=== PATIENT | female | born 2000 | race Caucasian/White ===

== ENCOUNTER 2022-02-13 12:02 | Emergency (ER) | payer OTHER, SELFPAY ==
[2022-02-13 12:08] VITALS: BP 129/67; PULSE 105; RESP 20; TEMP 36.6; O2SAT 100; BMI 20.8
[2022-02-13 12:40] LABS: Add Manual Diff / Slide Review NO; Basophils Absolute Auto 0 /uL (0-100); Basophils Percent Auto 0.5 % (0-2); Eosinophils Absolute Auto 0 /uL (0-450); Eosinophils Percent Auto 0.4 % (2-4); Hemoglobin 13.6 g/dL (12.0-16.0); Lymphocytes Absolute Auto 1400 /uL (1100-4500); Lymphocytes Percent Auto 22.8 % (25-40); Mean Corpuscular HGB Conc 33.8 % (30-36); Mean Corpuscular Hemoglobin 29.7 PG (26-34); Mean Corpuscular Volume 87.7 fL (80-100); Monocytes Absolute Auto 800 /uL (0-900); Monocytes Percent Auto 12.8 % (3-14); Neutrophils Absolute Auto 4000 /uL (1500-7000); Neutrophils Percent Auto 63.5 % (50-75); Platelet Count 265 X10^3/uL (150-400); Red Blood Cell Count 4.57 X10^6/uL (4.0-5.2); Red Cell Distribution Width 12.7 % (11.6-14.8); White Blood Cell Count 6.3 X10^3/uL (4.5-11.0)
[2022-02-13 13:03] LABS: Alanine Aminotransferase 16 IU/L (<35); Albumin 4.7 g/dL (3.5-5.0); Albumin Globulin Ratio 1.4 (1.0-2.8); Alkaline Phosphatase 49 U/L (38-126); Aspartate Aminotransferase 27 IU/L (14-36); BUN Creatinine Ratio 8.8 (6-22); Bilirubin Total 0.2 mg/dL (0.2-1.3); Blood Urea Nitrogen 5 mg/dL (7-17); Calcium 9.2 mg/dL (8.4-10.2); Carbon Dioxide 27 mmol/L (22-32); Chloride 102 mmol/L (98-107); Creatine Kinase 40 U/L (30-135); Estimated Glomerular Filt Rate > 60 mL/min (>60); Globulin 3.4 g/dL (1.7-4.1); Glucose 102 mg/dL (70-100); HEMOLYSIS < 15 (0-50); Lipase 57 U/L (23-300); Magnesium 2.1 mg/dL (1.6-2.3); Potassium 3.9 mmol/L (3.4-5.1); Sodium 137 mmol/L (137-145); Total Protein 8.1 g/dL (6.3-8.2)
[2022-02-13 13:13] LABS: Bacteria Urine Many (>30); Culture Indicated Urine Specimen Cultured; RBC Urine 0-1/HPF (0-5/HPF); Squamous Epithelial Cell Urine 5-10 /HPF (0-5/HPF); WBC Urine 5-10/HPF (0-5/HPF)
[2022-02-13 13:15] LABS: Troponin I < 0.012 ng/mL (0.01-0.034)
[2022-02-13 13:52] LABS: HCG Quantitative /Beta subunit 55033 mIU/mL
--- NOTE | 2022-02-13 14:18 | ED_ITS ---
HPI - Chest Pain General Chief Complaint: Chest Pain Stated Complaint: Abnormal High HR and Chest Pains/Preg Time Seen by Provider: 02/13/22 14:16 Source: patient Mode of arrival: Ambulatory History of Present Illness HPI narrative: Patient is a 21-year-old healthy female presenting today with heart palpitations. She said that she recently found out she was couple of days ago. She has felt her heart racing and her Apple watch toward her was 5 x 1 tab. She denies any dizziness or lightheadedness. Denies any nausea or vomiting. She is having some minimal abdominal cramping with out vaginal bleeding or vomiting. She denies any painful or frequent urinations. She is feeling a bit better. She states that she has a sodium deficiency and drinks Pedialyte and Gatorade regularly. She does not feel like he is dehydrated. Related Data Previous Rx's Medication Instructions Recorded nitrofurantoin 100 mg PO Q12H 7 Days #14 cap 02/13/22 monohydrate/macrocrystals 100 mg capsule (Macrobid) Allergies Allergy/AdvReac Type Severity Reaction Status Date / Time No Known Drug Allergies Allergy Verified 02/13/22 12:08 Review of Systems Review of Systems Narrative: GENERAL: Denies chills, fatigue, malaise, fever, sweats, travel HEENT: Denies sinus pain, ear pain, sore throat, difficulty swallowing, neck pain RESPIRATORY: Denies dyspnea, cough, wheezing, hemoptysis, sputum. CARDIOVASCULAR: See HPI GASTROINTESTINAL: Denies nausea, vomiting, abdominal pain, diarrhea, constipation, melena. : Denies dysuria, frequency, incontinence, hematuria, urinary retention, flank pain. MUSCULOSKELETAL: Denies weakness, joint pain, or bony pain SKIN: No rash, no erythema, no pruritus NEUROLOGIC: Denies weakness, dizziness, headache, numbness, change in speech, confusion PSYCHIATRIC: No concerning psychosocial issues. 12 point review of systems is negative except for those stated above and HPI Patient History Social History Smoking Status: Never smoker Smoking Status: Never smoker Substance Use Type: does not use Exam Initial Vital Signs Initial Vital Signs: Vital Signs Temperature 97.8 F 02/13/22 12:08 Pulse Rate 105 H 02/13/22 12:08 Respiratory Rate 20 02/13/22 12:08 Blood Pressure 129/67 02/13/22 12:08 Pulse Oximetry 100 02/13/22 12:08 GENERAL: Alert healthy well-appearing 21-year-old female HEENT: Head atraumatic,EOMI, pupils reactive, face symmetric, moist mucous membranes CARDIOVASCULAR: Regular rate and rhythm without murmurs, rubs or gallops. RESPIRATORY: Breath sounds equal bilaterally, no wheezes rales or rhonchi. ABDOMEN: Soft, minimal lower abdominal his pain no guarding no rebound : No CVA tenderness EXTREMITIES: Normal range of motion, no clubbing or edema. Neurovascularly intact NEUROLOGICAL: Alert and oriented x4.Normal gait and speech SKIN: Warm, dry, no laceration, no petechiae, no rashes or lesions. Course Orders Ordered: ED Orders 02/13/22 12:15 Urine Culture Stat Urine Microscopic Stat 02/13/22 12:28 Beta HCG, Quant [HCG Quantitative /Beta subunit] Stat Complete Blood Count AUTO DIFF Stat Comprehensive Metabolic Panel Stat Lipase Stat Magnesium Stat Troponin & CK Cardiac Panel Stat 02/13/22 14:32 US OB <= 14 weeks fetus Stat Discontinued Medications Sodium Chloride (Normal Saline 0.9%) 1,000 mls @ 1,000 mls/hr IV BOLUS ONE Stop: 02/13/22 15:25 Last Infusion: 02/13/22 16:08 Dose: 0 mls/hr Documented by: Admin: 02/13/22 14:55 Dose: 1,000 mls/hr Documented by: RAFA Vital Signs Vital signs: Vital Signs - 8 hr 02/13/22 12:08 02/13/22 14:54 02/13/22 14:55 Temperature 97.8 F Pulse Rate 105 H 89 91 H Respiratory Rate 20 24 18 Blood Pressure 129/67 107/59 L Pulse Oximetry 100 100 100 02/13/22 15:00 02/13/22 15:30 02/13/22 16:00 Temperature Pulse Rate 90 85 92 H Respiratory Rate 22 13 23 Blood Pressure 100/59 L 94/56 L 99/62 Pulse Oximetry 100 100 100 MDM - Chest Pain Lab Data Result diagrams: 02/13/22 12:28 02/13/22 12:28 Labs: Lab Results 02/13/22 02/13/22 02/13/22 Range/Units 12:15 12:28 12:28 WBC 6.3 (4.5-11.0) X10^3/uL RBC 4.57 (4.0-5.2) X10^6/uL Hgb 13.6 (12.0-16.0) g/dL Hct 40.0 (36-46) % MCV 87.7 (80-100) fL MCH 29.7 (26-34) PG MCHC 33.8 (30-36) % RDW 12.7 (11.6-14.8) % Plt Count 265 (150-400) X10^3/uL Neut % (Auto) 63.5 (50-75) % Lymph % (Auto) 22.8 L (25-40) % [place] % (Auto) 12.8 (3-14) % Eos % (Auto) 0.4 L (2-4) % Baso % (Auto) 0.5 (0-2) % Neut # (Auto) 4000 (1754-9757) /uL Lymph # (Auto) 1400 (4031-5863) /uL [place] # (Auto) 800 (0-900) /uL Eos # (Auto) 0 (0-450) /uL Baso # (Auto) 0 (0-100) /uL Sodium 137 (137-145) mmol/L Potassium 3.9 (3.4-5.1) mmol/L Chloride 102 (98-107) mmol/L Carbon Dioxide 27 (22-32) mmol/L BUN 5 L (7-17) mg/dL Creatinine 0.57 (0.52-1.04) mg/dL Estimated GFR > 60 (>60) mL/min BUN/Creatinine Ratio 8.8 (6-22) Glucose 102 H (70-100) mg/dL Calcium 9.2 (8.4-10.2) mg/dL Magnesium 2.1 (1.6-2.3) mg/dL Total Bilirubin 0.2 (0.2-1.3) mg/dL AST 27 (14-36) IU/L ALT 16 (<35) IU/L Alkaline Phosphatase 49 (38-126) U/L Total Creatine Kinase 40 (30-135) U/L CK-MB (CK-2) TNP CK-MB (CK-2) Rel Index TNP Troponin I < 0.012 (0.01-0.034) ng/mL Total Protein 8.1 (6.3-8.2) g/dL Albumin 4.7 (3.5-5.0) g/dL Globulin 3.4 (1.7-4.1) g/dL Albumin/Globulin Ratio 1.4 (1.0-2.8) Lipase 57 (23-300) U/L HCG, Quant 53674 mIU/mL Urine RBC 0-1/hpf (0-5/HPF) Urine WBC 5-10/hpf H (0-5/HPF) Ur Squamous Epith Cells 5-10 /hpf H (0-5/HPF) Urine Bacteria Many (>30) H (None) Ur Culture Indicated? Specimen cultured Point of Care Testing Test Results Positive Urine Dip Bedside Urine Glucose Negative Bedside Urine Bilirubin - Negative Bedside Urine Ketone - Negative Urine Specific [place] 1.015 Bedside Urine Occult Blood +/- Bedside Urine pH 6.0 Bedside Urine Protein - Negative Bedside Urine Urobilinogen - Negative Bedside Urine Nitrite - Negative Bedside Urine Leukocytes + 70 Esterase Imaging Data US - OB: Radiologist's Impression: atient: MeadowsFranci Kyaw Laws MR#: [id number] : 2000 Acct:[id number] Age/Sex: 21 / F Date of Service: 02/13/22 Loc: Accession Number: [id number] ?? Procedure: US OB <= 14 weeks fetus Ordering Provider: Kely Jarquin D.O. PROCEDURE:? US OB <= 14 WEEKS FETUS ? INDICATIONS:? newly prego with cramping ? OUTSIDE/PRIOR DATING DATA:? Last menstrual period (LMP):? November 14, 2021.? LMP-based estimated date of delivery (MARGOT):? August 11, 2022.? First dating scan (date):? February 13, 2022.? Estimated date of delivery (MARGOT) from first dating scan:? October 07, 2022. ? TECHNIQUE:? Real-time scanning was performed of the fetus and maternal pelvic organs, with image documentation.? Endovaginal scanning was also performed to better visualize the fetus and maternal ovaries.? ? COMPARISON:? None. ? FINDINGS:? ? Embryo:? 0.51 cm, compatible with a 6 week, 2 day gestation. Heart rate:? 119 beats per minute ? Maternal organs:? Ovaries demonstrated right corpus luteum. ? ? ? IMPRESSION:? Early single intrauterine gestation as detailed above. ? We strive to produce accurate, complete, and clear reports of imaging services. To assist us in improving patient care, this report was composed using standard report templates and voice recognition software. Therefore, it may contain abnormal punctuation, insertions and/or omissions. Occasional wrong-word or sound-alike substitutions may occur. Though we review the report and make efforts to correct it, we do recommend that the report be read carefully in proper context to recognize any text inaccuracies. ? Dictated by: Melvin Trinidad M.D. on 02/13/2022 at 15:38 ? ? Approved by: Melvin Trinidad M.D. on 02/13/2022 at 15:40 ? ECG Data Interpretation: Normal sinus rhythm rate 108 VT interval 134 QRS [address] changes no T- wave inversion no priors MDM Narrative Medical decision making narrative: The patient overall appears well. She is complaining of palpitations and fast heart rate however she reports heart rate of 110 at its fast this. In the ED it remains under 100, except for the EKG. She is given a L of fluids. Ultrasound confirms an IUP without complication. She is also found to have a UTI and started on antibiotics as well. At this time no need for any further workup Discharge Plan Departure Patient Disposition: Home Clinical Impression: UTI (urinary tract infection), Instructions: DI for Urinary Tract Infection (UTI), DI for -- Discomforts and Remedies Activity Restrictions/Additional Instructions: *You have been diagnosed with with UTI *What to do: Palpitations are likely from mild dehydration. Continue to drink fluids as you are. You do have a small bladder infection as well. Your 6 weeks and 2 days *Continue to take medications as directed Macrobid 100 mg twice a day for 7 days Continue *Follow up with your primary care provider in 2-3 days or call [phone] *Return to ER if you should have vaginal bleeding, abdominal pain or any new, worsening or concerning symptoms Prescriptions: New nitrofurantoin monohyd/m-cryst [Macrobid] 100 mg capsule 100 mg PO Q12H 7 Days Qty: 14 0RF Rx Instructions: must administer with a meal/food Referrals: Nettie Florentino MD [Primary Care Provider] -
--- NOTE | 2022-02-13 14:32 | DI.US.S_ITS ---
PROCEDURE: US OB <= 14 WEEKS FETUS INDICATIONS: newly prego with cramping OUTSIDE/PRIOR DATING DATA: Last menstrual period (LMP): November 14, 2021. LMP-based estimated date of delivery (MARGOT): August 11, 2022. First dating scan (date): February 13, 2022. Estimated date of delivery (MARGOT) from first dating scan: October 07, 2022. TECHNIQUE: Real-time scanning was performed of the fetus and maternal pelvic organs, with image documentation. Endovaginal scanning was also performed to better visualize the fetus and maternal ovaries. COMPARISON: None. FINDINGS: Embryo: 0.51 cm, compatible with a 6 week, 2 day gestation. Heart rate: 119 beats per minute Maternal organs: Ovaries demonstrated right corpus luteum. IMPRESSION: Early single intrauterine gestation as detailed above. We strive to produce accurate, complete, and clear reports of imaging services. To assist us in improving patient care, this report was composed using standard report templates and voice recognition software. Therefore, it may contain abnormal punctuation, insertions and/or omissions. Occasional wrong-word or sound-alike substitutions may occur. Though we review the report and make efforts to correct it, we do recommend that the report be read carefully in proper context to recognize any text inaccuracies. Dictated by: Melvin Trinidad M.D. on 02/13/2022 at 15:38 Approved by: Melvin Trinidad M.D. on 02/13/2022 at 15:40
[2022-02-13 14:54] VITALS: PULSE 89; RESP 24; O2SAT 100
[2022-02-13 14:55] VITALS: BP 107/59; PULSE 91; RESP 18; O2SAT 100
[2022-02-13] MEDS: SODIUM CHLORIDE 0.9% 1,000 ML 1000 ML IV (14:55)
[2022-02-13 15:00] VITALS: BP 100/59; PULSE 90; RESP 22; O2SAT 100
[2022-02-13 15:30] VITALS: BP 94/56; PULSE 85; RESP 13; O2SAT 100
[2022-02-13 16:00] VITALS: BP 99/62; PULSE 92; RESP 23; O2SAT 100
== END 2022-02-13 16:14 | disposition home or self-care (01) ==
PROVIDERS: Emergency Provider Emergency Medicine; PCP Family Medicine
DX: O23.41 Unspecified infection of urinary tract in pregnancy, first trimester (principal); N39.0 Urinary tract infection, site not specified; Z3A.01 Less than 8 weeks gestation of pregnancy
CPT/HCPCS: 36415; 76801; 76817; 80053; 81003; 81015; 81025; 82550; 83690; 83735; 84484; 84702; 85025; 87077; 87086; 87186; 93005; 93010; 96360; 99284

== ENCOUNTER 2022-02-27 15:36 | Emergency (ER) | payer OTHER, SELFPAY ==
[2022-02-27 15:40] VITALS: BP 116/69; PULSE 92; RESP 14; TEMP 36.6; O2SAT 98; BMI 20.1
[2022-02-27 16:30] LABS: Add Manual Diff / Slide Review NO; Basophils Absolute Auto 0 /uL (0-100); Basophils Percent Auto 0.3 % (0-2); Eosinophils Absolute Auto 100 /uL (0-450); Hematocrit 34.5 % (36-46); Hemoglobin 11.9 g/dL (12.0-16.0); Lymphocytes Absolute Auto 2100 /uL (1100-4500); Lymphocytes Percent Auto 20.8 % (25-40); Mean Corpuscular HGB Conc 34.5 % (30-36); Monocytes Absolute Auto 700 /uL (0-900); Monocytes Percent Auto 6.5 % (3-14); Neutrophils Absolute Auto 7300 /uL (1500-7000); Neutrophils Percent Auto 71.4 % (50-75); Platelet Count 263 X10^3/uL (150-400); Red Blood Cell Count 3.97 X10^6/uL (4.0-5.2); Red Cell Distribution Width 12.6 % (11.6-14.8); White Blood Cell Count 10.3 X10^3/uL (4.5-11.0)
[2022-02-27 16:33] LABS: Bacteria Urine Few (2-10); Culture Indicated Urine Specimen Cultured; Mucus Urine 1+ (Negative); RBC Urine 0-1/HPF (0-5/HPF); Squamous Epithelial Cell Urine 1-5 /HPF (0-5/HPF); Transitional Epi Cells Urine 1-5/HPF (0-5/HPF); WBC Urine 5-10/HPF (0-5/HPF)
--- NOTE | 2022-02-27 16:44 | ED_ITS ---
HPI - Syncope <MORRO Wayne - Last Filed: 02/27/22 17:48> General Chief Complaint: Syncope Stated Complaint: Has been passing out randomly, mild cramps Time Seen by Provider: 02/27/22 15:50 Source: patient Mode of arrival: Ambulatory Limitations: no limitations History of Present Illness HPI narrative: This is a 21-year-old female who is with her last menstrual period 13th, she is approximately 8 weeks and her due date is October 07, 2022. Patient states that she has a history of mental health disorders including PTSD, she is not on any medication currently. She was seen in the emergency department on 02/13/22 for syncope. Today she presents to the emergency department complaining of numerous syncopal episodes without aura or other complicating symptom. She denies any nausea vomiting she denies any trauma, denies any abnormal vaginal discharge, states that she was treated for you with Macrobid on 02/13/22 and her symptoms have improved. On chart review it appears that she grew out E coli, this was sensitive to the previous however patient endorses urinary frequency and urgency, states that her symptoms are ongoing. She denies any abnormal vaginal discharge or bleeding. Her primary care providers Dr. Florentino she states that she has follow-up scheduled on 06/13/2022 and has not arrange [facility] care yet. Patient states that she is currently bertram ng alone, her is deployed, and her roommate is out of the country for 30 days. Patient denies chills, dizziness, weakness, complaint this time. She states when her syncopal episode happens, everything goes black, she denies any aura, nausea, vision changes or other. Related Data Previous Rx's Medication Instructions Recorded cephalexin 500 mg capsule 500 mg PO TID 7 Days #21 cap 02/27/22 Allergies Allergy/AdvReac Type Severity Reaction Status Date / Time No Known Drug Allergies Allergy Verified 02/27/22 15:46 Review of Systems <MORRO Wayne - Last Filed: 02/27/22 17:48> Review of Systems Narrative: General: denies fever, chills, malaise, sweats, fatigue Head/Neck: denies headache, neck pain, dizziness or lightheadedness Eyes: denies visual changes, eye pain Cardio: denies chest pain, palpitations, edema Respiratory: denies dyspnea, cough, orthopnea GI: denies abdominal pain, nausea, vomiting, or diarrhea : Endorses ongoing dysuria and urinary frequency, denies any hematuria, urinary retention, abnormal vaginal discharge, vaginal bleeding, or incontinence MSK: denies joint pain, muscle weakness Skin: denies rash, itching, skin lesions or other Neuro: denies numbness, tingling Patient History <MORRO Wayne - Last Filed: 02/27/22 17:48> Social History Smoking Status: Never smoker Smoking Status: Never smoker alcohol intake frequency: holidays/special occasions only Substance Use Type: does not use Exam <MORRO Wayne - Last Filed: 02/27/22 17:48> Narrative Exam Narrative: Independently reviewed vitals signs and nursing notes. General: cooperative, comfortable, in no acute distress, well developed and well groomed Head: atraumatic, symmetrical facial expressions Neck: supple, atraumatic, without lymphadenopathy. Eyes: pupils equal round and reactive, EOMI, conjunctiva normal, no nystagmus Nose: nares patent, no rhinorrhea Mouth/Throat: uvula midline, moist mucus membranes Cardiovascular: regular rate and rhythm, no peripheral edema, warm extremities Respiratory: normal effort, able to speak in complete sentences, no audible whe ezing, stridor, or rales. No retractions or tachypnea. GI: abdomen soft, nontender to palpation, nondistended, no masses, no exquisite tenderness with exam, without guarding or rebound. MSK: moves all extremities, ambulatory w/steady gait, neurovascularly intact, no weakness Skin: brisk capillary refill, no rash, no erythema Neuro: normal speech and cognition, A&O x3, normal tone Psych: mental status is grossly normal, congruent mood, normal affect, pleasant and cooperative Initial Vital Signs Initial Vital Signs: Vital Signs Temperature 97.9 F 02/27/22 15:40 Pulse Rate 92 H 02/27/22 15:40 Respiratory Rate 14 02/27/22 15:40 Blood Pressure 116/69 02/27/22 15:40 Pulse Oximetry 98 02/27/22 15:40 <Seferino Palacios DO - Last Filed: 02/27/22 17:52> Initial Vital Signs Initial Vital Signs: Vital Signs Temperature 97.9 F 02/27/22 15:40 Pulse Rate 92 H 02/27/22 15:40 Respiratory Rate 14 02/27/22 15:40 Blood Pressure 116/69 02/27/22 15:40 Pulse Oximetry 98 02/27/22 15:40 Course <MORRO Wayne - Last Filed: 02/27/22 17:48> Orders Ordered: ED Orders 02/27/22 15:40 Urine Culture Stat Urine Microscopic Stat 02/27/22 15:51 EKG-12 Lead Stat 02/27/22 16:22 Basic Metabolic Panel Stat Complete Blood Count AUTO DIFF Stat Magnesium Stat Discontinued Medications Cephalexin HCl (Cephalexin 250 Mg Capsule) 500 mg PO NOW ONE Stop: 02/27/22 17:16 Last Admin: 02/27/22 17:28 Dose: 500 mg Documented by: ROBBIE Vital Signs Vital signs: Vital Signs - 8 hr 02/27/22 15:40 02/27/22 17:50 Temperature 97.9 F Pulse Rate 92 H 85 Respiratory Rate 14 12 Blood Pressure 116/69 116/69 Pulse Oximetry 98 100 <Seferino Palacios DO - Last Filed: 02/27/22 17:52> Orders Ordered: ED Orders 02/27/22 15:40 Urine Culture Stat Urine Microscopic Stat 02/27/22 15:51 EKG-12 Lead Stat 02/27/22 16:22 Basic Metabolic Panel Stat Complete Blood Count AUTO DIFF Stat Magnesium Stat Discontinued Medications Cephalexin HCl (Cephalexin 250 Mg Capsule) 500 mg PO NOW ONE Stop: 02/27/22 17:16 Last Admin: 02/27/22 17:28 Dose: 500 mg Documented by: [email or web address] Vital Signs Vital signs: Vital Signs - 8 hr 02/27/22 15:40 02/27/22 17:50 Temperature 97.9 F Pulse Rate 92 H 85 Respiratory Rate 14 12 Blood Pressure 116/69 116/69 Pulse Oximetry 98 100 MDM - Syncope <MORRO Wayne - Last Filed: 02/27/22 17:48> Lab Data Result diagrams: 02/27/22 16:22 02/27/22 16:22 Labs: Lab Results 0402/27/22 02/27/22 Range/Units 15:40 16:22 16:22 WBC 10.3 (4.5-11.0) X10^3/uL RBC 3.97 L (4.0-5.2) X10^6/uL Hgb 11.9 L (12.0-16.0) g/dL Hct 34.5 L (36-46) % MCV 87.0 (80-100) fL MCH 30.0 (26-34) PG MCHC 34.5 (30-36) % RDW 12.6 (11.6-14.8) % Plt Count 263 (150-400) X10^3/uL Neut % (Auto) 71.4 (50-75) % Lymph % (Auto) 20.8 L (25-40) % [place] % (Auto) 6.5 (3-14) % Eos % (Auto) 1.0 L (2-4) % Baso % (Auto) 0.3 (0-2) % Neut # (Auto) 7300 H (6049-4579) /uL Lymph # (Auto) 2100 (1409-5408) /uL [place] # (Auto) 700 (0-900) /uL Eos # (Auto) 100 (0-450) /uL Baso # (Auto) 0 (0-100) /uL Sodium 135 L (137-145) mmol/L Potassium 3.7 (3.4-5.1) mmol/L Chloride 102 (98-107) mmol/L Carbon Dioxide 25 (22-32) mmol/L BUN 10 (7-17) mg/dL Creatinine 0.53 (0.52-1.04) mg/dL Estimated GFR > 60 (>60) mL/min BUN/Creatinine Ratio 18.9 (6-22) Glucose 91 (70-100) mg/dL Calcium 8.7 (8.4-10.2) mg/dL Magnesium (1.6-2.3) mg/dL Urine RBC 0-1/hpf (0-5/HPF) Urine WBC 5-10/hpf H (0-5/HPF) Ur Squamous Epith Cells 1-5 /hpf (0-5/HPF) Ur Transition Epith Cell 1-5/hpf (0-5/HPF) Urine Bacteria Few (2-10) H (None) Urine Mucus 1+ H (Negative) Ur Culture Indicated? Specimen cultured 02/27/22 Range/Units 16:22 WBC (4.5-11.0) X10^3/uL RBC (4.0-5.2) X10^6/uL Hgb (12.0-16.0) g/dL Hct (36-46) % MCV (80-100) fL MCH (26-34) PG MCHC (30-36) % RDW (11.6-14.8) % Plt Count (150-400) X10^3/uL Neut % (Auto) (50-75) % Lymph % (Auto) (25-40) % [place] % (Auto) (3-14) % Eos % (Auto) (2-4) % Baso % (Auto) (0-2) % Neut # (Auto) (4773-3793) /uL Lymph # (Auto) (0220-5288) /uL [place] # (Auto) (0-900) /uL Eos # (Auto) (0-450) /uL Baso # (Auto) (0-100) /uL Sodium (137-145) mmol/L Potassium (3.4-5.1) mmol/L Chloride (98-107) mmol/L Carbon Dioxide (22-32) mmol/L BUN (7-17) mg/dL Creatinine (0.52-1.04) mg/dL Estimated GFR (>60) mL/min BUN/Creatinine Ratio (6-22) Glucose (70-100) mg/dL Calcium (8.4-10.2) mg/dL Magnesium 1.9 (1.6-2.3) mg/dL Urine RBC (0-5/HPF) Urine WBC (0-5/HPF) Ur Squamous Epith Cells (0-5/HPF) Ur Transition Epith Cell (0-5/HPF) Urine Bacteria (None) Urine Mucus (Negative) Ur Culture Indicated? Urine Dip Bedside Urine Glucose Negative Bedside Urine Bilirubin - Negative Bedside Urine Ketone - Negative Urine Specific [place] 1.020 Bedside Urine Occult Blood + Bedside Urine pH 6.0 Bedside Urine Protein - Negative Bedside Urine Urobilinogen - Negative Bedside Urine Nitrite - Negative Bedside Urine Leukocytes +/- 15 Esterase MDM Narrative Medical decision making narrative: This is a 21-year-old female, 8 weeks , who presents to the emergency department complaining syncopal episodes since 02/13/2022 when she was seen in the emergency department for this. She states that she was treated for a UTI, took Macrobid and completed the course but still has ongoing dysuria and urinary frequency. She denies any abnormal vaginal discharge, or vaginal bleeding. Her urine today is positive for leukocytes and bacteria on microscopy, this was sent for culture and is pending. Patient was treated with cephalexin for ongoing UTI, 500 mg p.o. t.i.d. for 7 days. She does not have any nausea, vomiting, flank pain or hematuria. Lab work overall is unremarkable, no gross electrolyte abnormalities, no leukocytosis, with a left shift, hemoglobin 11.9, hematocrit 34.5. Patient appears well hydrated, tolerating p.o. without difficulty. EKG shows sinus arrhythmia, ventricular rate 89 beats per minute, GA interval is 156 milliseconds, QRS is 78, QTC is 406, normal axis without any ST changes. No inverted waves. Patient's primary care provider is Dr. Florentino, patient is pending her appointment with her on March 13, 2020. I called the office to try and move her appointment, she does not have any availability to move her appointment sooner. I recommend a Holter monitor and sent a message to Dr. Florentino to see if she was able to order this for her. Also to see if anybody else can see the patient from the office sooner than March 13. Patient was given strict return precautions for any vaginal bleeding, worsening abdominal pain, cramping, chills, fever, syncope with injury, she was instructed to not drive her vehicle since she does not know when these syncopal episodes will occur. Possible that this is from her UTI, encourage patient to stay hydrated, frequently eat nutritious food, and follow- up closely with her primary care provider. Patient was given Dr. Jimenez information if she wants to call the office and schedule appointment with another provider. Encourage patient to return to the emergency department for any concerning symptoms, and to follow up accordingly. Patient is appropriate and amenable to discharge home. Vital signs are stable on repeat examination is unremarkable. Patient has been informed of results. Patient has been given strict return to ER precautions for any new or worsening symptoms. Patient understands to follow up closely with outpatient providers as instructed. Patient understands plan and agrees to discharge home. All questions and c oncerns answered at this time. <Seferino Philip DO - Last Filed: 02/27/22 17:52> Lab Data Labs: Lab Results 02/27/22 02/27/22 02/27/22 Range/Units 15:40 16:22 16:22 WBC 10.3 (4.5-11.0) X10^3/uL RBC 3.97 L (4.0-5.2) X10^6/uL Hgb 11.9 L (12.0-16.0) g/dL Hct 34.5 L (36-46) % MCV 87.0 (80-100) fL MCH 30.0 (26-34) PG MCHC 34.5 (30-36) % RDW 12.6 (11.6-14.8) % Plt Count 263 (150-400) X10^3/uL Neut % (Auto) 71.4 (50-75) % Lymph % (Auto) 20.8 L (25-40) % [place] % (Auto) 6.5 (3-14) % Eos % (Auto) 1.0 L (2-4) % Baso % (Auto) 0.3 (0-2) % Neut # (Auto) 7300 H (7825-1625) /uL Lymph # (Auto) 2100 (7988-6354) /uL [place] # (Auto) 700 (0-900) /uL Eos # (Auto) 100 (0-450) /uL Baso # (Auto) 0 (0-100) /uL Sodium 135 L (137-145) mmol/L Potassium 3.7 (3.4-5.1) mmol/L Chloride 102 (98-107) mmol/L Carbon Dioxide 25 (22-32) mmol/L BUN 10 (7-17) mg/dL Creatinine 0.53 (0.52-1.04) mg/dL Estimated GFR > 60 (>60) mL/min BUN/Creatinine Ratio 18.9 (6-22) Glucose 91 (70-100) mg/dL Calcium 8.7 (8.4-10.2) mg/dL Magnesium (1.6-2.3) mg/dL Urine RBC 0-1/hpf (0-5/HPF) Urine WBC 5-10/hpf H (0-5/HPF) Ur Squamous Epith Cells 1-5 /hpf (0-5/HPF) Ur Transition Epith Cell 1-5/hpf (0-5/HPF) Urine Bacteria Few (2-10) H (None) Urine Mucus 1+ H (Negative) Ur Culture Indicated? Specimen cultured 02/27/22 Range/Units 16:22 WBC (4.5-11.0) X10^3/uL RBC (4.0-5.2) X10^6/uL Hgb (12.0-16.0) g/dL Hct (36-46) % MCV (80-100) fL MCH (26-34) PG MCHC (30-36) % RDW (11.6-14.8) % Plt Count (150-400) X10^3/uL Neut % (Auto) (50-75) % Lymph % (Auto) (25-40) % [place] % (Auto) (3-14) % Eos % (Auto) (2-4) % Baso % (Auto) (0-2) % Neut # (Auto) (5101-2877) /uL Lymph # (Auto) (0358-3697) /uL [place] # (Auto) (0-900) /uL Eos # (Auto) (0-450) /uL Baso # (Auto) (0-100) /uL Sodium (137-145) mmol/L Potassium (3.4-5.1) mmol/L Chloride (98-107) mmol/L Carbon Dioxide (22-32) mmol/L BUN (7-17) mg/dL Creatinine (0.52-1.04) mg/dL Estimated GFR (>60) mL/min BUN/Creatinine Ratio (6-22) Glucose (70-100) mg/dL Calcium (8.4-10.2) mg/dL Magnesium 1.9 (1.6-2.3) mg/dL Urine RBC (0-5/HPF) Urine WBC (0-5/HPF) Ur Squamous Epith Cells (0-5/HPF) Ur Transition Epith Cell (0-5/HPF) Urine Bacteria (None) Urine Mucus (Negative) Ur Culture Indicated? Urine Dip Bedside Urine Glucose Negative Bedside Urine Bilirubin - Negative Bedside Urine Ketone - Negative Urine Specific [place] 1.020 Bedside Urine Occult Blood + Bedside Urine pH 6.0 Bedside Urine Protein - Negative Bedside Urine Urobilinogen - Negative Bedside Urine Nitrite - Negative Bedside Urine Leukocytes +/- 15 Esterase Discharge Plan Departure Patient Disposition: Home Clinical Impression: UTI (urinary tract infection) Qualifiers: Urinary tract infection type: acute cystitis Hematuria presence: without hematuria Qualified Code(s): N30.00 - Acute cystitis without hematuria Syncope Qualifiers: Syncope type: unspecified Qualified Code(s): R55 - Syncope and collapse Instructions: DI for Syncope in Adults (Fainting), DI for Urinary Tract Infection (UTI) Activity Restrictions/Additional Instructions: *You have been diagnosed with syncopal episodes, likely vasovagal, and a urinary tract infection. We have cultured her urine, change her antibiotic, please take Keflex 3 times a day for the next 7 days. Stay hydrated, remember to eat healthy foods frequently that have nutrition in them, low processed foods. Please call and see if you can schedule an appointment with Dr. Jimenez tomorrow for OBGYN. See if you can get an before your appointment with Dr. Florentino. She may call you tomorrow about this Holter monitor. Please follow-up with her at your next available appointment, she is an OBGYN and it would be ideal to keep her through your your . She might be able to order a Holter monitor for you to wear at home. Please avoid driving if you are having syncopal episodes unexpectedly. This may improve if you are on an antibiotic treating your infection. Since you did not have this fully treated, I wonder if this is cause for your syncope. Thank you for trusting us with your care, I encourage you to follow-up closely, be persistent, and see if anybody else is willing to see you at the office or has an opening. Thank you for trusting us with your care, please return for any worsening of her symptoms, any injuries, if you have any vaginal bleeding, cramping, or worsening symptoms. When you go to OBGYN, they will test your Rh incompatibility, we do not give program unless you are having vaginal bleeding. So if you are, please come into the ER so we can treat you. I hope you feel better soon. Try to remember to stay hydrated, keep the t ank full, change positions slowly, and keep your blood sugar up. Your body is going through a lot of changes. *What to do: *Please continue to take your regular medications as directed. [x ] New medication prescriptions sent to your pharmacy: [[facility] ] [ ] New medication written as a paper prescription [ ] No new medications given *Please follow up with your primary care provider in 2-3 days, call for an appointment. Let them know you were seen in the Emergency Department and that we asked that you be seen for follow-up. We will electronically transmit a record of today's note if your PCP is in our system *If you do not have a primary care provider please contact [phone] to establish care with one of the [facility] primary care providers. *Return to Emergency Department if you should have any new, worsening or concerning symptoms, such as [fever greater than 101F, chills, worsening pain, persistent vomiting or other bothersome symptoms] Prescriptions: New cephalexin 500 mg capsule 500 mg PO TID 7 Days Qty: 21 0RF Referrals: Bruna Jimenez MD [Physician] - Nettie Florentino MD [Primary Care Provider] - As soon as possible <Seferino Palacios DO - Last Filed: 02/27/22 17:52> Cosign ED Attending Cosignature Attestation: Dr Palacios Co-Sign Statement: I was available for consultation during this patient's emergency department visit. This chart is signed by myself for administrative purposes only. I did not have direct contact with this patient during this visit. They were seen independently by the APC.
[2022-02-27 16:46] LABS: BUN Creatinine Ratio 18.9 (6-22); Blood Urea Nitrogen 10 mg/dL (7-17); Calcium 8.7 mg/dL (8.4-10.2); Carbon Dioxide 25 mmol/L (22-32); Chloride 102 mmol/L (98-107); Estimated Glomerular Filt Rate > 60 mL/min (>60); Glucose 91 mg/dL (70-100); HEMOLYSIS < 15 (0-50); Magnesium 1.9 mg/dL (1.6-2.3); Potassium 3.7 mmol/L (3.4-5.1); Sodium 135 mmol/L (137-145)
[2022-02-27] MEDS: cephALEXin 250 MG CAPSULE 500 MG PO (17:28)
[2022-02-27 17:50] VITALS: BP 116/69; PULSE 85; RESP 12; O2SAT 100
== END 2022-02-27 17:51 | disposition home or self-care (01) ==
PROVIDERS: Emergency Medicine; Emergency Provider Nurse Practitioner Critical Care Medicine; PCP Family Medicine
DX: O23.43 Unspecified infection of urinary tract in pregnancy, third trimester (principal); O26.891 Other specified pregnancy related conditions, first trimester; R55 Syncope and collapse; Z3A.08 8 weeks gestation of pregnancy
CPT/HCPCS: 36415; 80048; 81003; 81015; 83735; 85025; 87077; 87086; 87186; 93005; 99283

== ENCOUNTER 2022-03-09 10:05 | Emergency (ER) | payer OTHER, SELFPAY ==
[2022-03-09 10:21] VITALS: BP 117/67; PULSE 111; RESP 22; O2SAT 99; BMI 21.3
[2022-03-09 10:40] VITALS: PULSE 98; RESP 25; O2SAT 99
--- NOTE | 2022-03-09 10:49 | ED.DIZZY ---
HPI - Dizziness General Chief Complaint: Dizziness Stated Complaint: 10 wks - high heart rate for 3 days, dizzy Time Seen by Provider: 03/09/22 10:10 Source: patient Mode of arrival: Family Vehicle History of Present Illness HPI Narrative: 21-year-old female nonsmoker is a at about 10 weeks, managed locally by Dr. Florentino presents with body aches, low-grade fever, sore throat for the past few days. She is not immunized against COVID but denies exposure to anybody with known or suspected illness. She states that her heart rate has gone as high as the 140s over the past few days and she feels lightheaded on occasion. She denies any chest pain or shortness of breath. She has had no nausea, vomiting or diarrhea. She denies any dysuria, frequency or urgency. She has no vaginal bleeding or leakage of fluid. On arrival her heart rate is in the 90s and temp is noted to be 100.1 Related Data Home Medications Medication Instructions Recorded Confirmed prenat.vits,makenna,[id number] 1 tab PO DAILY 03/06/22 03/06/22 Allergies Allergy/AdvReac Type Severity Reaction Status Date / Time adhesive tape AdvReac Intermediate Rash Verified 03/09/22 10:26 titanium AdvReac Mild Rash Verified 03/09/22 10:26 Review of Systems Review of Systems Narrative: GENERAL: See HPI. HEENT: See HPI RESPIRATORY: See HPI CARDIOVASCULAR: See HPI GASTROINTESTINAL: See HP : Denies dysuria, frequency, incontinence, hematuria, urinary retention. MUSCULOSKELETAL: denies weakness, joint pain, or bony pain SKIN: Denies rash, skin lesions, or other NEUROLOGIC: Denies weakness, headache, numbness, change in speech, confusion, seizures, incoordination. PSYCHIATRIC: No concerning psychosocial issues. 12 point review of systems is negative except for those stated above Patient History Medical History ADHD Anxiety Chronic ear infection Depression Dissociative identity disorder Insomnia Psychiatric pseudoseizure PTSD (post-traumatic stress disorder) Surgical History H/O tympanostomy Social History marital status: number of children: 0 household members: spouse and other (roommate) lives independently: Yes housing: house pets and animals: Yes (3 dogs and 1 cat; has robotic litter box) occupational status: unemployed (model and dog-sitter) current occupational exposures/hazards: No special freddie needs: No travel history: over 6 months ago seatbelt use: always water heater temp set < 120 deg: No working smoke detector in home: Yes fire extinguisher in home: Yes carbon monox detector in home: Yes firearms in home: Yes firearms unloaded and locked: Yes do you feel safe at home: Yes Smoking Status: Never smoker second hand exposure: Yes (parents smoke, previous exposure) alcohol intake: never substance use type: marijuana (tried once age 18, no longer) during the past year weight has: remained stable well-balanced diet: about half the time daily servings fruits/ve or more times/day caffeine: Yes Type(s) of exercise: walking and other (hiking) additional social history: Pt is adopted and has very little knowledge of her biological family Hx, but is starting to reach out and get to know a few people. Planning to move back to [place] at least temporarily prior to delivery so family can help. Smoking Status: Never smoker alcohol intake frequency: holidays/special occasions only Substance Use Type: does not use Exam Narrative Exam Narrative: GENERAL: [21 year old patient appears stated age. Well-developed patient, in mild distress. HEAD: Atraumatic. Normocephalic. EYES: Pupils equal round and reactive. Extraocular motions intact. No scleral icterus. No injection or drainage. ENT: Nose without bleeding, purulent drainage. Throat without erythema, tonsillar hypertrophy or exudate. Airway patent. NECK: Trachea midline. Non tender, no meningeal signs CARDIOVASCULAR: Tachycardic but regular rhythm without murmurs, gallops, or rubs. RESPIRATORY: Clear to auscultation. Breath sounds equal bilaterally. No wheezes, rales, or rhonchi. GASTROINTESTINAL: Abdomen soft, non-tender, nondistended. EXTREMITIES: No edema or joint tenderness. BACK: Nontender without deformity or crepitance. No flank tenderness. NEURO: AOx3. SKIN: No rash or erythema of visible areas Initial Vital Signs Initial Vital Signs: Vital Signs Pulse Rate 111 H 03/09/22 10:21 Respiratory Rate 22 03/09/22 10:21 Blood Pressure 117/67 03/09/22 10:21 Pulse Oximetry 99 03/09/22 10:21 Course Orders Ordered: Discontinued Medications Sodium Chloride (Normal Saline 0.9%) 1,000 mls @ 1,000 mls/hr IV BOLUS PRN PRN Reason: Fluid replacement Last Infusion: 03/09/22 11:48 Dose: 0 mls/hr Documented by: Admin: 03/09/22 11:07 Dose: 1,000 mls/hr Documented by: CHERI Vital Signs Vital signs: Vital Signs - 8 hr 03/09/22 10:21 03/09/22 10:40 03/09/22 11:00 Pulse Rate 111 H 98 H 106 H Respiratory Rate 22 25 H 22 Blood Pressure 117/67 Pulse Oximetry 99 99 100 03/09/22 11:14 03/09/22 11:30 Pulse Rate 98 H 99 H Respiratory Rate 19 23 Blood Pressure 102/58 L Pulse Oximetry 100 100 MDM - Dizziness Lab Data Labs: Lab Results 03/09/22 Range/Units 10:59 SARS-CoV-2 (PCR) Positive H (Negative) MDM Narrative Medical decision making narrative: Patient with reassuring history and physical exam. She does feel somewhat better after IV fluids. She demonstrates no significant shortness of breath as evidence by lack of tachypnea, use of accessory muscles or need for supplemental oxygen. History, physical and labs are consistent with COVID. She demonstrates no indication that hospitalization would be warranted. Return precautions given and questions answered to her apparent satisfaction Discharge Plan Departure Patient Disposition: Home Clinical Impression: COVID Instructions: DI for COVID-19 (Suspected or Confirmed ) Activity Restrictions/Additional Instructions: *You have been diagnosed with [ COVID-19] *What to do: * per recommendations from the CDC and the [facility] Department of Health * stay home except to get medical care. Restrict activities outside your home, except for getting medical care. Do not go to work, school, or public areas. Avoid using public transportation, ride sharing, or taxis. * separate yourself from other people in your home. * call ahead before visiting your doctor * Wear a facemask * Cover your coughs and sneezes * Clean your hands often * Avoid sharing household items * Clean all high-touch services every day * Monitor your symptoms and seek prompt medical attention if your illness is worsening, particularly with difficulty in breathing. You may discontinue your isolation when: 1. You have been fever-free for at least 24 hours without the use of fever reducing medication, AND 2. Your symptoms are getting better, AND 3. At least 5 days have passed since symptoms first appeared 4. If you have fever, continue to stay home until fever resolves Individuals with laboratory confirmed COVID-19 who have not had any symptoms may discontinue home isolation when at least 5 days have passed since the date of their first COVID-19 diagnostic test and have had no subsequent illness You should notifiy any friends and family that have been in close contact *If up to date on COVID Vaccines, then they do not need to quarantine unless symptoms develop. Get tested on day 5 (or sooner if symptoms develop). Take precautions and watch for symptoms until day 10 *If NOT up to date on COVID Vaccines, then CDC recommends quarantine for at least 5 full days. Wear a well fitted mask at home if you must be around others. If they develop symptoms they should get tested. If they remain asymptomatic they should get tested on day 5. They should take precautions and monitor for symptoms until day 10. Prescriptions: No Action prenat.vits,makenna,[id number] Tablet 1 tab PO DAILY 0RF Referrals: Nettie Florentino MD [Primary Care Provider] -
[2022-03-09 11:00] VITALS: PULSE 106; RESP 22; O2SAT 100
[2022-03-09] MEDS: SODIUM CHLORIDE 0.9% 1,000 ML 1000 ML IV (11:07)
[2022-03-09 11:14] VITALS: BP 102/58; PULSE 98; RESP 19; O2SAT 100
[2022-03-09 11:18] LABS: COVID19 -Nasal RAPID POSITIVE (Negative)
[2022-03-09 11:30] VITALS: PULSE 99; RESP 23; O2SAT 100
--- NOTE | 2022-03-09 11:53 | PC.NURSE ---
Verbal order received from Dr. Limon to only give 500ml of NS.
== END 2022-03-09 11:52 | disposition home or self-care (01) ==
PROVIDERS: Emergency Provider Emergency Medicine; PCP Family Medicine
DX: U07.1 COVID-19 (principal)
CPT/HCPCS: 87635; 99282; 99283; C9803

== ENCOUNTER → 2022-03-24 15:10 | Outpatient (CLI) | payer OTHER, SELFPAY ==
--- NOTE | 2022-04-11 16:33 | P.HOLT.S_ITS ---
Insurance Verification Clerk Report Referral & Results Date Patient Seen: 03/24/22 Requesting provider: Nettie Florentino Indication: Syncope Duration of monitoring (days): 13 Diary information: There were 23 patient triggered events and 0 patient diary entries Patient triggered events were variably associated with sinus rhythm and simple PACs Data: Minimum heart rate identified was 40 beats per minute at 02:31 on 03/25/2022 Maximum heart rate was 177 beats per minute at 16:22 on 03/30/2022 Less than 1% of identified beats were ventricular or supraventricular ectopic in origin, which would classify them as rare. No pauses of 3 seconds or longer or episodes of atrial fibrillation or episodes of supraventricular tachycardia were identified on this study Impression: 13 day threat monitoring analyst demonstrating simple PACs that were rare in frequency of occurrence Clinical correlation suggested
== END ==
PROVIDERS: PCP Family Medicine; Referring Provider Family Medicine; Visit Provider Family Medicine
DX: R55 Syncope and collapse (principal)
CPT/HCPCS: 93246; 93248

== ENCOUNTER → 2022-03-26 16:02 | Outpatient (CLI) | payer OTHER, SELFPAY ==
[2022-03-26 17:42] LABS: Add Manual Diff / Slide Review NO; Basophils Absolute Auto 0 /uL (0-100); Basophils Percent Auto 0.4 % (0-2); Eosinophils Absolute Auto 100 /uL (0-450); Hematocrit 34.6 % (36-46); Lymphocytes Absolute Auto 2300 /uL (1100-4500); Lymphocytes Percent Auto 23.8 % (25-40); Mean Corpuscular HGB Conc 34.5 % (30-36); Mean Corpuscular Hemoglobin 29.9 PG (26-34); Mean Corpuscular Volume 86.6 fL (80-100); Monocytes Absolute Auto 600 /uL (0-900); Monocytes Percent Auto 6.2 % (3-14); Neutrophils Absolute Auto 6700 /uL (1500-7000); Neutrophils Percent Auto 68.6 % (50-75); Platelet Count 265 X10^3/uL (150-400); Red Cell Distribution Width 12.5 % (11.6-14.8); White Blood Cell Count 9.7 X10^3/uL (4.5-11.0)
[2022-03-27 02:51] LABS: RPR Screen Non Reactive (Non Reactive)
[2022-03-27 16:48] LABS: Hepatitis B Surface Antigen NEGATIVE s/c (NEGATIVE)
[2022-03-27 17:07] LABS: HIV 1 & 2 Ab/Ag 4th Gen Combo NEGATIVE (NEGATIVE); Hep C Virus Ab w/Reflex Quant NEGATIVE s/c (NEGATIVE)
[2022-03-28 08:42] LABS: Varicella IgG Antibody 1508 index (Immune >165)
== END ==
PROVIDERS: PCP Family Medicine; Referring Provider Family Medicine; Visit Provider Family Medicine
DX: Z34.00 Encounter for supervision of normal first pregnancy, unspecified trimester (principal)
CPT/HCPCS: 36415; 80055; 86787; 86803; 86850; 86900; 86901; 87389

== ENCOUNTER → 2022-05-06 11:40 | Outpatient (CLI) | payer OTHER, SELFPAY ==
[2022-05-09 21:10] LABS: AFP, Serum 58.3 ng/mL (.); Calc Gestational Age Ultrasound (.); Estriol, Free 1.85 ng/mL (.); Inhibin A, Dimeric 217.98 pg/mL (.); Inhibin A, MoM 1.18 (.); Maternal Ethnicity Caucasian (.); Maternal Weight 113 lbs (.); Number of Fetuses No (.); OSBR Risk 1 IN 10000 (.); Results Report (.); Test Results *Screen Negative* (.); hCG, Serum 76781 mIU/mL (.)
== END ==
PROVIDERS: PCP Family Medicine; Referring Provider Family Medicine; Visit Provider Family Medicine
DX: Z34.92 Encounter for supervision of normal pregnancy, unspecified, second trimester (principal); Z3A.18 18 weeks gestation of pregnancy
CPT/HCPCS: 36415; 82105; 82677; 84702; 86336

== ENCOUNTER → 2022-05-13 14:57 | Outpatient (CLI) | payer OTHER, SELFPAY ==
--- NOTE | 2022-05-13 14:58 | DI.US.S_ITS ---
PROCEDURE: US OB >= 14 WEEKS FETUS INDICATIONS: ANATOMY OUTSIDE/PRIOR DATING DATA: Last menstrual period (LMP): 11/14/2021. LMP-based estimated date of delivery (MARGOT): 08/21/2022. First dating scan (date and location): 02/13/2022. Estimated date of delivery (MARGOT) from first dating scan: 10/07/2022. The calculations are made using the ultrasound MARGOT of 10/07/2022. TECHNIQUE: Real-time scanning was performed of the fetus, with image documentation and biometric measurements. Endovaginal scanning: Not performed COMPARISON: None. FINDINGS: General: A single living intrauterine gestation is present. Presentation: Breech. Placenta: Placental position is posterior , without previa. Amniotic fluid index: 11.8 cm, normal range is 5-24 cm. Single deepest vertical pocket is 3.9 cm. heart rate: 145 beats per minute. Maternal cervical canal: 4.3 cm long. Normal lower limit is 2.5 cm. biometrics: Biparietal diameter: 4.1 centimeters Head circumference: 16.2 centimeters Abdominal circumference: 13.3 centimeters Femur length: 3.0 centimeters Composite gestational age from present scan: 18 weeks 6 days Estimated weight and percentile: 268 grams, 45th percentile Anatomic survey: Neuro: Ventricles are non-dilated at less than 10 mm. Cisterna magna is normal at 3-11 mm. Cerebellum is normal in size and morphology. Nuchal skin fold: Normal at less than 6 mm between 14-21 weeks gestational age. Face: Nose and lips, facial profile are normal. Spine: No evidence for spina bifida. Heart: 4-chambered heart is present, with normal ventricular outflow tracts. Diaphragm: Diaphragm is intact. Stomach: Left-sided stomach is present. Kidneys: No hydronephrosis. Normal is less than 5 mm in 2nd trimester, less than 7 mm in 3rd trimester. Cord: 3-vessel cord has orthotopic insertion. Bladder: Normal in size. Extremities: All 4 extremities identified. IMPRESSION: Single living intrauterine gestation. Estimated gestational age 18 weeks 6 days. Normal weight and normal anatomic survey. We strive to produce accurate, complete, and clear reports of imaging services. To assist us in improving patient care, this report was composed using standard report templates and voice recognition software. Therefore, it may contain abnormal punctuation, insertions and/or omissions. Occasional wrong-word or sound-alike substitutions may occur. Though we review the report and make efforts to correct it, we do recommend that the report be read carefully in proper context to recognize any text inaccuracies. Dictated by: Marcelo Larsen M.D. on 05/13/2022 at 16:50 Approved by: Marcelo Larsen M.D. on 05/13/2022 at 16:52
[2022-05-13 16:08] LABS: Appearance Urine UA CLOUDY; Bilirubin Urine UA NEGATIVE (NEGATIVE); Color Urine UA YELLOW; Glucose Urine UA NEGATIVE (Negative); Ketones Urine UA NEGATIVE (NEGATIVE); Leukocyte Esterase Urine UA 2+ (NEGATIVE); Nitrite Urine UA NEGATIVE (Negative); Occult Blood Urine UA NEGATIVE (Negative); Protein Urine UA NEGATIVE (Negative); Specific Gravity Urine UA 1.015 (1.000-1.035); Urobilinogen Urine UA 0.2 E.U./dL (0.2)
[2022-05-13 16:35] LABS: Amorphous Sediment Urine 3+; Bacteria Urine Few (2-10); RBC Urine None Seen (0-5/HPF); Squamous Epithelial Cell Urine 5-10 /HPF (0-5/HPF); WBC Urine 1-5/HPF (0-5/HPF)
[2022-05-13 17:42] LABS: Urine N gonorrhoeae NOT DETECTED
[2022-05-13 17:50] LABS: Urine Chlamydia NOT DETECTED
[2022-05-13 17:53] LABS: Hepatitis B Surface Antigen NEGATIVE s/c (NEGATIVE)
[2022-05-13 18:14] LABS: HIV 1 & 2 Ab/Ag 4th Gen Combo NEGATIVE (NEGATIVE); Hep C Virus Ab w/Reflex Quant NEGATIVE s/c (NEGATIVE)
[2022-05-14 07:39] LABS: RPR Screen Non Reactive (Non Reactive)
[2022-05-14 22:12] LABS: HSV I/II IgM 0.94 Ratio (0.00-0.90)
== END ==
PROVIDERS: PCP Family Medicine; Referring Provider Family Medicine; Visit Provider Family Medicine
DX: Z3A.18 18 weeks gestation of pregnancy; Z11.3 Encounter for screening for infections with a predominantly sexual mode of transmission; Z36.89 Encounter for other specified antenatal screening
CPT/HCPCS: 36415; 76811; 81003; 81015; 86592; 86694; 86803; 87086; 87340; 87389; 87491; 87591

== ENCOUNTER → 2022-08-18 11:08 | Outpatient (CLI) | payer OTHER, SELFPAY ==
[2022-08-18 13:18] LABS: Add Manual Diff / Slide Review NO; Basophils Absolute Auto 0 /uL (0-100); Basophils Percent Auto 0.1 % (0-2); Eosinophils Absolute Auto 100 /uL (0-450); Eosinophils Percent Auto 0.7 % (2-4); Hematocrit 31.9 % (36-46); Hemoglobin 10.9 g/dL (12.0-16.0); Lymphocytes Absolute Auto 3100 /uL (1100-4500); Lymphocytes Percent Auto 29.7 % (25-40); Mean Corpuscular HGB Conc 34.2 % (30-36); Mean Corpuscular Hemoglobin 30.1 PG (26-34); Mean Corpuscular Volume 88.1 fL (80-100); Monocytes Absolute Auto 900 /uL (0-900); Monocytes Percent Auto 8.6 % (3-14); Neutrophils Absolute Auto 6400 /uL (1500-7000); Neutrophils Percent Auto 60.9 % (50-75); Platelet Count 298 X10^3/uL (150-400); Red Blood Cell Count 3.62 X10^6/uL (4.0-5.2); White Blood Cell Count 10.6 X10^3/uL (4.5-11.0)
[2022-08-18 13:41] LABS: GTT (PREG) 1 Hour PP 50gm Dose 117 mg/dL (76-139)
== END ==
PROVIDERS: PCP Family Medicine; Referring Provider Family Medicine; Visit Provider Family Medicine
DX: Z34.00 Encounter for supervision of normal first pregnancy, unspecified trimester (principal)
CPT/HCPCS: 82950; 85025

== ENCOUNTER → 2022-09-12 15:02 | Outpatient (CLI) | payer OTHER, SELFPAY ==
[2022-09-13 13:20] LABS: Strep Grp B PCR POS for Grp B Strep
== END ==
PROVIDERS: PCP Family Medicine; Visit Provider Family Medicine
DX: Z36.85 Encounter for antenatal screening for Streptococcus B (principal)
CPT/HCPCS: 87653

== ENCOUNTER 2022-10-15 16:17 | Outpatient (CLI) | payer OTHER, SELFPAY ==
--- NOTE | 2022-10-15 16:44 | PM.OBTRLD ---
Visit Information Visit Information Date of evaluation: 10/15/22 Primary OB Provider: Nettie Florentino Comments/Additional reasons for admission: 22yo at 41w1d here for NST for post-dates. She is feeling her baby move regularly. No LOF, vaginal bleeding, contractions. FORMERLY [facility] Medical History ADHD Anxiety Chronic ear infection Depression Dissociative identity disorder Insomnia Psychiatric pseudoseizure PTSD (post-traumatic stress disorder) Surgical History H/O tympanostomy Social History marital status: number of children: 0 household members: spouse and other lives independently: Yes housing: house pets and animals: Yes (3 dogs and 1 cat; has robotic litter box) occupational status: unemployed current occupational exposures/hazards: No special freddie needs: No travel history: over 6 months ago seatbelt use: always water heater temp set < 120 deg: No working smoke detector in home: Yes fire extinguisher in home: Yes carbon monox detector in home: Yes firearms in home: Yes firearms unloaded and locked: Yes do you feel safe at home: Yes Smoking Status: Never smoker second hand exposure: Yes (parents smoke, previous exposure) alcohol intake: never substance use type: marijuana during the past year weight has: remained stable well-balanced diet: about half the time daily servings fruits/ve or more times/day caffeine: Yes Type(s) of exercise: walking and other additional social history: Pt is adopted and has very little knowledge of her biological family Hx, but is starting to reach out and get to know a few people. Planning to move back to [place] at least temporarily prior to delivery so family can help. Evaluation Evaluation Baseline heart rate: 140 Variability: Moderate (11-25) monitor accelerations: Present Monitor Decelerations: Absent Category of Tracing: Reactive Diagnosis, Plan/Disposition Final Diagnosis (1) Post-dates : Status: Acute Plan/Disposition Plan: 22yo at 41w1d here for NST for post-dates. NST reactive. Plan for repeat NST on 10/18. As noted in clinic, pt has declined induction and is aware of risks. OB Disposition: home
== END 2022-10-15 16:50 | disposition home or self-care (01) ==
LOC: OB 10-21 09:57
PROVIDERS: PCP Family Medicine; Referring Provider Family Medicine; Visit Provider Family Medicine
DX: O48.0 Post-term pregnancy (principal); Z3A.41 41 weeks gestation of pregnancy
CPT/HCPCS: 59025; G0378; G0379

== ENCOUNTER 2022-10-16 04:10 | Observation (INO) | payer OTHER, SELFPAY ==
[2022-10-16] MEDS: ACETAMINOPHEN 325 MG TABLET 650 MG PO (07:44)
== END 2022-10-16 07:45 | disposition home or self-care (01) ==
LOC: LABOR 04:11
PROVIDERS: Admitting Provider Obstetrics & Gynecology; PCP Family Medicine; Referring Provider Obstetrics & Gynecology; Visit Provider Obstetrics & Gynecology
DX: O48.0 Post-term pregnancy (principal); Z3A.41 41 weeks gestation of pregnancy
CPT/HCPCS: 59025; 59050; G0378; G0379

== ENCOUNTER 2022-10-16 17:34 | Inpatient (IN) | payer OTHER, SELFPAY ==
[2022-10-16 18:33] LABS: Add Manual Diff / Slide Review NO; Basophils Absolute Auto 100 /uL (0-100); Basophils Percent Auto 0.5 % (0-2); Eosinophils Absolute Auto 0 /uL (0-450); Hematocrit 37.3 % (36-46); Hemoglobin 12.3 g/dL (12.0-16.0); Lymphocytes Absolute Auto 1800 /uL (1100-4500); Lymphocytes Percent Auto 11.9 % (25-40); Mean Corpuscular HGB Conc 33.1 % (30-36); Mean Corpuscular Hemoglobin 28.1 PG (26-34); Mean Corpuscular Volume 84.8 fL (80-100); Monocytes Absolute Auto 700 /uL (0-900); Monocytes Percent Auto 4.6 % (3-14); Neutrophils Absolute Auto 12500 /uL (1500-7000); Platelet Count 326 X10^3/uL (150-400); Red Blood Cell Count 4.39 X10^6/uL (4.0-5.2); Red Cell Distribution Width 13.7 % (11.6-14.8)
[2022-10-16 18:52] LABS: COVID19 -Nasal RAPID Negative (Negative)
[2022-10-16] MEDS: LACTATED RINGERS 1,000 ML 100 ML IV ×3 (19:07→23:44)
[2022-10-16] MEDS: PENICILLIN G POTASSIUM 5,000,000 UNIT in DEXTROSE 5% IN WATER 250 ML 250 UNIT IV (19:08)
[2022-10-16] MEDS: FENT 2MCG/ML BUPIV 0.125% EPI 200 MCG/100 ML PLAST..BAG 8 MCG EPIDURAL (19:11)
[2022-10-16 19:44] VITALS: BP 130/77
[2022-10-16] MEDS: PENICILLIN G POTASSIUM 3,000,000 UNIT/50 ML FROZ.PIGGY 100 UNIT IV (23:42)
[2022-10-17] MEDS: FENT 2MCG/ML BUPIV 0.125% EPI 200 MCG/100 ML PLAST..BAG 8 MCG EPIDURAL ×2 (00:28→07:20)
--- NOTE | 2022-10-17 02:15 | P.HPOB_ITS ---
OB HPI Date/Time Date of admission: 10/16/22 Date Patient Seen: 10/17/22 Time Patient Seen: 02:15 History of Present Condition Chief complaint: OBSERVATION OF LABOR MARGOT Calculator Estimated Delivery Date Method Current WG Current Estimate 10/07/22 Manual 41w 3d Final MARGOT - ABRIL Other Estimates 08/21/22 LMP (Certain) 48w 1d 10/07/22 Ultrasound #1 41w 3d 10/03/22 Ultrasound #2 42w 0d Estimated Gestational Age (weeks): 41w3d : 1 Para: 0 Narrative: Pt is a 22yo at 41w3d who presented with regular painful contractions. Pt reports contractions starting early in the day yesterday, becoming increasingly painful and closer together. She denies any LOF. She has had some bloody show. She is feeling her baby move regularly. Pts was uncomplicated. She does have a complex psychiatric history including PTSD and dissociative identity disorder. care: limited care, initiated at week # (12) and pounds weight gain (45) Dating criteria OB: based on 1st trimester US only Ultrasounds: normal 1st trimester US and normal mid trimester US Obstetrical complications: none Medical complications OB: psychiatric Preadmission Labs Last OB Lab Results: Blood Type O Positive 10/16/22 18:15 Antibody Screen Negative 10/16/22 18:15 Hematocrit 37.3 % (36-46) 10/16/22 18:29 Hemoglobin 12.3 g/dL (12.0-16.0) 10/16/22 18:29 Hepatitis B Surface Antigen Negative s/c (NEGATIVE) 05/13/22 15 :44 Hepatitis C Antibody Negative s/c (NEGATIVE) 05/13/22 15:44 Rubella Antibody 13.0 IU/mL (>15) L 03/26/22 16:27 Varicella-Zoster IgG Antibody 1508 index (Immune >165) 03/26/22 16:27 Glucose 1 Hour 117 mg/dL (76-139) 08/18/22 11:18 Group B Streptococcus (PCR) Pos for grp b strep H 09/12/22 15:0 2 -: Chlamydia screen: negative, Gonorrhea screen: negative and Urine: positive (E coli, negative EDY) Genetic Screens: Quad screen: Normal External Labs -: Urine: positive (E coli, negative EDY) Evaluation Evaluation Baseline heart rate: 135 Variability: Moderate (11-25) monitor accelerations: Present Monitor Decelerations: Absent Status: Category l Dilation (cm): 5 Effacement (%): 90 station: -1 Comments: After informed consent, AROM performed with production of clear fluid. FOR[facility]LY [facility] Medical History ADHD Anxiety Chronic ear infection Depression Dissociative identity disorder Insomnia Psychiatric pseudoseizure PTSD (post-traumatic stress disorder) Surgical History H/O tympanostomy Social History marital status: number of children: 0 household members: spouse and other lives independently: Yes housing: house pets and animals: Yes (3 dogs and 1 cat; has robotic litter box) occupational status: unemployed current occupational exposures/hazards: No special freddie needs: No travel history: over 6 months ago seatbelt use: always water heater temp set < 120 deg: No working smoke detector in home: Yes fire extinguisher in home: Yes carbon monox detector in home: Yes firearms in home: Yes firearms unloaded and locked: Yes do you feel safe at home: Yes Smoking Status: Never smoker second hand exposure: Yes (parents smoke, previous exposure) alcohol intake: never substance use type: marijuana during the past year weight has: remained stable well-balanced diet: about half the time daily servings fruits/ve or more times/day caffeine: Yes Type(s) of exercise: walking and other additional social history: Pt is adopted and has very little knowledge of her biological family Hx, but is starting to reach out and get to know a few people. Planning to move back to [place] at least temporarily prior to delivery so family can help. Meds Home Medications and Allergies Home Medications Medication Instructions Recorded Confirmed Type prenat.vits,makenna,[id number]-bhnd-ycyaf 1 tab PO DAILY 03/06/22 10/07/22 History Allergies Allergy/AdvReac Type Severity Reaction Status Date / Time adhesive tape AdvReac Intermediate Rash Verified 10/07/22 11:24 titanium AdvReac Mild Rash Verified 10/07/22 11:24 OB Exam Narrative Exam Narrative: Gen: NAD, sitting comfortably in bed, appears well CV: RRR, no murmurs Resp: clear to auscultation bilaterally Abd: soft, nontender, gravid Ext: no edema Objective Labs Result Diagrams: 10/16/22 18:29 Labs: Laboratory Results - last 24 hr 10/16/22 10/16/22 10/16/22 18:15 18:29 18:29 WBC 15.0 H RBC 4.39 Hgb 12.3 Hct 37.3 MCV 84.8 MCH 28.1 MCHC 33.1 RDW 13.7 Plt Count 326 Neut % (Auto) 83.0 H Lymph % (Auto) 11.9 L [place] % (Auto) 4.6 Eos % (Auto) 0.0 L Baso % (Auto) 0.5 Neut # (Auto) 63649 H Lymph # (Auto) 1800 [place] # (Auto) 700 Eos # (Auto) 0 Baso # (Auto) 100 SARS-CoV-2 (PCR) Negative Blood Type O Positive Antibody Screen Negative Assessment and Plan Assessment and Plan Assessment and Plan narrative: Pt is a 22yo at 41w3d here in active labor. GBS positive, Rh positive. After adequate GBS prophlaxis, AROM performed with clear fluid present. Pt with limited cervical change since admission. Pt did have prolonged decel to the 60s after ROM, no cord prolapse present. Improved with hands and knees positioning. - Expectant management, anticipate . Pt slow to progress. Hopeful AROM will help. - FHT now reassuring, prolonged decel with AROM. Keeping hands to knees, will attempt transition back shortly. - GBS positive, continue penicillin prophylaxis - Epidural in place for pain control
[2022-10-17 02:57] VITALS: BP 98/48; PULSE 85; RESP 15; O2SAT 93
[2022-10-17] MEDS: PENICILLIN G POTASSIUM 3,000,000 UNIT/50 ML FROZ.PIGGY 100 UNIT IV ×2 (03:36→07:21)
[2022-10-17] MEDS: OXYTOCIN PREMIX 30 UNIT/500 ML PLAST..BAG IV (06:27)
[2022-10-17] MEDS: LACTATED RINGERS 1,000 ML 100 ML IV (06:32)
--- NOTE | 2022-10-17 06:40 | PM.OBPNLAB ---
Date/Time Date Patient Seen: 10/17/22 Time Patient Seen: 06:40 Pain Control Pain control: tolerating well and epidural Pelvic Exam Dilation (cm): 5 Effacement (%): 90 station: -1 Amniotic membrane status: Ruptured Contractions Monitor mode: Internal Pitocin rate (mU/min): 1 Contraction frequency (min): 3 Intrauterine tone measurement: 190 Status status: Category l Heart Rate Baseline: 130 Monitor Accelerations: Absent Monitor Decelerations: Absent Monitor Variability: Moderate Assessment and Plan Comments: Pt is a 22yo at 41w3d here in active labor.? GBS positive, Rh positive.? After adequate GBS prophlaxis, AROM performed with clear fluid present. Baby has only tolerated 1-2 positions, with recurrent late decels in other positions. Due to no cervical change, IUPC was placed. Contractions appear adequate now, however pt does report they got stronger in the last several minutes. Will continue to closely monitor. - Expectant management. Will continue pitocin and titrate as tolerated. If without cervical change and adequate contractions in the next 4hrs, or FHT become nonreassuring again, will plan on primary . Will attempt position changes as FHT allow, as based on coupling with contractions baby is likely OP/asynclitic. - GBS positive, continue penicillin prophylaxis - Epidural in place for pain control
--- NOTE | 2022-10-17 10:34 | P.PNOB_ITS ---
Date/Time Date Patient Seen: 10/17/22 Pain Control Pain control: tolerating well and epidural Pelvic Exam Dilation (cm): 5 Effacement (%): 90 station: 0 Amniotic membrane status: Ruptured Contractions Monitor mode: Internal Contraction frequency (min): 3 Intrauterine tone measurement: 200 Status status: Category l Heart Rate Baseline: 130 Monitor Accelerations: Present Monitor Decelerations: Absent Monitor Variability: Moderate Assessment and Plan Comments: Pt is a 22yo at 41w3d here in active labor.? GBS positive, Rh positive.? After adequate GBS prophlaxis, AROM performed with clear fluid present.? Due to no cervical change, IUPC was placed.? Pitocin was not tolerated due to recurrent late decels. Contractions have now been adequate for more than 4 hours, without significant cervical change. Noted to have minimal cervical swelling as well. Due to failure to progress, the decision was made to proceed with primary c- section. The risks vs benefits of the procedure were discussed with the patient. Risks including but not limited to infection, bleeding/hemorrhage, injury to other organs such as the bowel/bladder, injury to fetus. The pt is agreeable to blood transfusion if medically necessary. The consent was signed and placed in the patient's chart. The pt will receive 2g Ancef and 500mg Azithromycin prior to surgery. SCDs to be placed. The OR team was notified, non-emergent at this point in time.
[2022-10-17] MEDS: AZITHROMYCIN 500 MG in DEXTROSE 5% IN WATER 250 ML 250 MG IV (11:50)
[2022-10-17] MEDS: CEFAZOLIN 2 GM/100 ML PREMIX 100 ML IV (11:50)
--- NOTE | 2022-10-17 12:18 | SUR.OPER ---
Supine on Padded OR bed, head on pillow, safety belt at thigh, arms secured on padded arm boards at <90 degrees abduction. Bump under right buttock. Legs uncrossed with pillow under knees, gel pad to heels, tape over blanket to lower legs.
--- NOTE | 2022-10-17 12:34 | SUR.OPER ---
VIABLE FEMALE INFANT DELIVERED AT 1204. PLACENTA AND CORD BLOOD SET TO OB WITH RN.
[2022-10-17 12:46] VITALS: BP 89/50; PULSE 99; RESP 15; TEMP 36.8; O2SAT 92
[2022-10-17 12:52] VITALS: BP 128/89; PULSE 51; RESP 15; O2SAT 92
[2022-10-17 13:02] VITALS: BP 93/53; PULSE 18; RESP 14; TEMP 36.7; O2SAT 93
--- NOTE | 2022-10-17 13:04 | PM.PREOP ---
Pre-operative Note COVID-19 COVID-19 status: Negative Result date/Date tested (Pos, Neg/Pending): 10/16/22 Interval Note History & Physical reviewed/Exam performed by Physician: Yes Changes to H&P: No
--- NOTE | 2022-10-17 13:04 | PM.OBCS.1 ---
Operative Date/Time/Diagnoses Date of procedure: 10/17/22 Time of procedure: 11:30 Pre-op diagnosis: 41w3d gestation GBS positive Rh positive Failure to progress Post-op diagnosis: same Procedure & Clinicians Procedure: Primary Same procedure as scheduled: Yes Indications: Failure to progress Surgeon: Nettie Florentino Non Garment Sewing Machine Operator: Ann Duncan Anesthesia Type: Epidural Operative Notes Findings: Normal uterus, ovaries, and tubes Closure Type: primary Specimen(s): cord blood and cord pH Intraoperative meds administered: Ketorolac and Pitocin Applied: Catheter Estimated Blood Loss (mL): 800 Procedure in detail: OPERATIVE COURSE: The patient was taken to the operating room where epidural anesthesia was bolused. She was then prepared and draped in the normal sterile fashion in the dorsal supine position with a leftward tilt. Anesthesia was tested and found to be adequate. A Pfannensteil skin incision was then made with the scalpel and carried through to the underlying layer of fascia with the scalpel. The fascia was incised in the midline and the incision extended laterally with the Jane scissors. The superior aspect of the fascial incision was then grasped with Jeny clamps, elevated with the help of the surgical services assistant, and the underlying rectus muscles dissected off bluntly and sharply where needed. Attention was then turned to the inferior aspect of the incision which, in a similar fashion, was grasped, tented up with Jeny clamps, and the rectus muscle dissected off bluntly and sharply with Jane scissors. The rectus muscles were then in the midline, and the peritoneum was identified and entered bluntly. The peritoneal incision was then extended with good visualization of the bladder. Retraction was provided by the surgical services assistant. The bladder blade was then inserted and the vesicouterine peritoneum identified, grasped with pick-ups and entered sharply with the Metzenbaum scissors. The incision was then extended laterally and the bladder flap created digitally. The bladder blade was then reinserted and the lower uterine segment incised in a transverse fashion with the scalpel, with the surgical services assistant providing suction. The uterine incision was then extended superolaterally by pulling superolaterally on both sides. Membranes were ruptured and fluid was clear. The bladder blade was removed the infant's head was flexed out of OP position and delivered atraumatically, with fundal pressure by the surgical services assistant. The nose and mouth were suctioned with bulb suction and the cord was clamped and cut after 45 seconds due to poor tone. The infant was handed off to the waiting nursing staff. Cord blood was collected for Rh status. Cord gases were sent. The placenta was then delivered with gentle cord traction. The uterus was then exteriorized and cleared of all clots and debris. The uterine incision was repaired with O-Vicryl in a running, locked fashion. A second layer of the same suture was used to obtain excellent hemostasis. The uterus was returned to the abdomen. The gutters were cleared of all clots. Hysterotomy was investigated and found to be hemostatic. The bladder flap was closed with 2-O Chromic. The fascia was reapproximated with O-Vicryl in a running fashion. The subcutaneous tissue was reapproximated with 3-O Vicryl. The skin was closed with 4-O Vicryl. The surgical services assistant helped with retraction during closures. SPONGE AND NEEDLE COUNTS: Correct x3. DRESSING: Aquacel ANTICOAGULATION: SCDs applied prior to Surgery Preop antibiotics given (see MAR). The patient was taken to recovery room having tolerated procedure well. Complications: none Baby 1: Infant Gender: Female Presentation: vertex Position: Occiput Posterior Placental Delivery Description: Spontaneous Cord Vessel Description: 3 Vessels score (1 min): 3 score (5 min): 9 weight: 8 lb 3.254 oz Post-operative Condition: stable Disposition: PACU Aftercare: routine postop
[2022-10-17 13:07] VITALS: BP 100/57; PULSE 85; RESP 15; O2SAT 92
[2022-10-17] MEDS: ONDANSETRON 4 MG/2 ML INJ IV (17:30)
[2022-10-17] MEDS: KETOROLAC 30 MG/ML VIAL IV (19:34)
[2022-10-18] MEDS: KETOROLAC 30 MG/ML VIAL IV ×2 (01:52→07:49)
[2022-10-18 06:44] LABS: Add Manual Diff / Slide Review NO; Basophils Absolute Auto 0 /uL (0-100); Basophils Percent Auto 0.2 % (0-2); Eosinophils Absolute Auto 100 /uL (0-450); Eosinophils Percent Auto 0.8 % (2-4); Hematocrit 25.8 % (36-46); Hemoglobin 8.6 g/dL (12.0-16.0); Lymphocytes Absolute Auto 1800 /uL (1100-4500); Lymphocytes Percent Auto 14.1 % (25-40); Mean Corpuscular HGB Conc 33.4 % (30-36); Mean Corpuscular Hemoglobin 28.1 PG (26-34); Mean Corpuscular Volume 84.1 fL (80-100); Monocytes Absolute Auto 700 /uL (0-900); Monocytes Percent Auto 5.6 % (3-14); Neutrophils Absolute Auto 9900 /uL (1500-7000); Neutrophils Percent Auto 79.3 % (50-75); Platelet Count 208 X10^3/uL (150-400); Red Blood Cell Count 3.07 X10^6/uL (4.0-5.2); Red Cell Distribution Width 13.7 % (11.6-14.8); White Blood Cell Count 12.5 X10^3/uL (4.5-11.0)
--- NOTE | 2022-10-18 09:39 | PM.PNPO.1 ---
Subjective Subjective Date Patient Seen: 10/18/22 Time Patient Seen: 09:39 Interval history: s/p primary CS without complaints. Has showered. Not lightheaded when up. Nursing successfully. Pain controlled Exam Vital Signs (past 8 hours): 98.3, 93/49, 88 Oxygen Delivery Method Room Air Const General: cooperative, healthy appearing and comfortable Chest Other: normal respiratory effort Cardio Rate: regular rate Rhythm: regular rhythm Other: fndus firm / lochia light Neuro General: patient alert and patient awake Psych Affect: normal affect Objective Labs Result Diagrams: 10/18/22 06:29 Labs: Laboratory Results - last 24 hr 10/18/22 06:29 WBC 12.5 H RBC 3.07 L Hgb 8.6 L Hct 25.8 L MCV 84.1 MCH 28.1 MCHC 33.4 RDW 13.7 Plt Count 208 Neut % (Auto) 79.3 H Lymph % (Auto) 14.1 L [place] % (Auto) 5.6 Eos % (Auto) 0.8 L Baso % (Auto) 0.2 Neut # (Auto) 9900 H Lymph # (Auto) 1800 [place] # (Auto) 700 Eos # (Auto) 100 Baso # (Auto) 0 PFSH Medical History ADHD Anxiety Chronic ear infection Depression Dissociative identity disorder Insomnia Psychiatric pseudoseizure PTSD (post-traumatic stress disorder) Surgical History H/O tympanostomy Social History marital status: number of children: 0 household members: spouse and other lives independently: Yes housing: house pets and animals: Yes (3 dogs and 1 cat; has robotic litter box) occupational status: unemployed current occupational exposures/hazards: No special freddie needs: No travel history: over 6 months ago seatbelt use: always water heater temp set < 120 deg: No working smoke detector in home: Yes fire extinguisher in home: Yes carbon monox detector in home: Yes firearms in home: Yes firearms unloaded and locked: Yes do you feel safe at home: Yes Smoking Status: Never smoker second hand exposure: Yes (parents smoke, previous exposure) alcohol intake: never substance use type: marijuana during the past year weight has: remained stable well-balanced diet: about half the time daily servings fruits/ve or more times/day caffeine: Yes Type(s) of exercise: walking and other additional social history: Pt is adopted and has very little knowledge of her biological family Hx, but is starting to reach out and get to know a few people. Planning to move back to [place] at least temporarily prior to delivery so family can help. Assessment & Plan Post-op Assessment and plan (1) delivery delivered: Postoperative Procedures: Procedures Operation Date: 10/17/22 11:15 Actual Procedure Side Surgeon p Section Not Applicable Nettie Florentino MD Postoperative day: 1 Postoperative status: doing well Postoperative plan: routine post-op care Time Spent With Patient Time with patient: less than 15 minutes
[2022-10-18] MEDS: DOCUSATE 100 MG CAPSULE 200 MG PO (14:07)
[2022-10-18] MEDS: PRENATAL VIT,CALC/IRON/FOLIC 1 TABLET 1 TAB PO (14:08)
[2022-10-18] MEDS: ACETAMINOPHEN 325 MG TABLET 650 MG PO ×2 (14:08→20:38)
[2022-10-18] MEDS: IBUPROFEN 600 MG TABLET PO (20:37)
[2022-10-19] MEDS: ACETAMINOPHEN 325 MG TABLET 650 MG PO ×2 (02:20→08:29)
[2022-10-19] MEDS: IBUPROFEN 600 MG TABLET PO ×2 (02:21→08:29)
[2022-10-19] MEDS: PRENATAL VIT,CALC/IRON/FOLIC 1 TABLET 1 TAB PO (08:29)
[2022-10-19] MEDS: DOCUSATE 100 MG CAPSULE 200 MG PO (08:29)
--- NOTE | 2022-11-08 10:35 | PM.OBDS.1 ---
Discharge Providers Provider Date of admission: 10/16/22 17:34 Discharge Date: 10/19/22 Primary care physician: Nettie Florentino MD Consults: 10/17/22 13:54 Consult to Electrical Controls Designer Routine Comment: Discharge provider: Yolis Somers MD Summary Hospital Course Date Patient Seen: 10/19/22 Diagnoses: s/p delivery on 10/17 for failure to progress Hospital Course: G1 now P1 with obstructed labor delivered by CS [Apgars 3/9, cord ph 7.14/7.11], Post op recovery benign with normal vital signs, good return of bowel function, lochia light, pain controlled. Pt began breast feeding successfully Peripartum Data Delivery Method: Section complications: none Discharge Diagnosis (1) delivery delivered: Status: Acute Status at Discharge Cognitive/behavioral status at discharge: oriented Functional status at discharge: independent ambulation Overall status at discharge: patient is progressing back to baseline Time Spent with Patient Time attestation: Total time spent providing and/or coordinating discharge services: Time spent: Less than 30 minutes Specific discharge activities: Nothing in vagina for 6 weeks. No lifting >10# for six weeks Objective Labs Result Diagrams: 10/18/22 06:29 Exam Vital Signs (past 8 hours): AF/ VSS Oxygen Delivery Method Room Air Narrative Exam Narrative: incision - covered with Aquacel Const General: cooperative and healthy appearing Discharge Plan Discharge Plan Patient Disposition: Home Provider Discharge Comment: Pt without complaints. Pain controlled with tylenol / motrin only. Nursing successfully. Vitals 104/77, 87, O2 sat 100%, 98.3, 16 H/H - /9 Discharge orders & Medications Prescriptions: New acetaminophen 325 mg Tablet 650 mg PO Q6H PRN (Reason: Fever/Mild Pain (1-3)) Qty: 60 0RF docusate sodium 100 mg Capsule 200 mg PO DAILY Qty: 30 0RF ibuprofen 600 mg Tablet 600 mg PO Q6H PRN (Reason: Fever/Mild Pain (1-3)) Qty: 60 0RF oxycodone 5 mg Tablet 5 mg PO Q4H PRN (Reason: Pain, Moderate (4-6)) Qty: 30 0RF Continued prenat.vits,makenna,upy-geio-ndole Tablet 1 tab PO DAILY Follow up/Referrals: Nettie Florentino MD [Primary Care Provider] - 10/24/22 9:30 am (incision check appointment) Diet/Activity/Treatments Diet: Diet as Tolerated and Regular Activity: Nothing in vagina for 6 weeks. No lifting >10# for 6 weeks. Skin/Wound/Dressing Care Report to your healthcare provider any signs of infection, such as:: chills, fever, increased pain and unusual drainage Dressing: to be removed at next office visit Visit Report/Discharge Packet Instructions: DI for Stand Alone Forms: Discharge: Care Discharge Data Primary Care Provider: Nettie Florentino
--- NOTE | 2022-11-08 20:21 | P.DS_ITS ---
Discharge Providers Provider Date of admission: 10/16/22 17:34 Discharge Date: 10/19/22 Primary care physician: Nettie Florentino MD Consults: 10/17/22 13:54 Consult to Manager Multicultural Routine Comment: Discharge provider: Yolis Somers MD Summary Hospital Course Date Patient Seen: 10/19/22 Diagnoses: P1 s/p primary CS for FTP Hospital Course: G1 now P1 with obstructed labor delivered by CS [Apgars 3/9, cord ph 7.14/7.11], Post op recovery benign with normal vital signs, good return of bowel function, lochia light, pain controlled. Pt began breast feeding successfully Peripartum Data Infant Delivery Method: Section complications: none Discharge Diagnosis (1) delivery delivered: Status: Acute Status at Discharge Cognitive/behavioral status at discharge: oriented Functional status at discharge: independent ambulation Overall status at discharge: patient is back to baseline Time Spent with Patient Time attestation: Total time spent providing and/or coordinating discharge services: Time spent: Less than 30 minutes Specific discharge activities: Pelvic rest x 6 weeks. No lifting >10# for 6 weeks. Objective Labs Result Diagrams: 10/18/22 06:29 Exam Vital Signs (past 8 hours): 98.3, 87, 104/77 Oxygen Delivery Method Room Air Narrative Exam Narrative: wound covered with Aquacel Const General: cooperative and healthy appearing Nutritional Appearance: average body habitus Orientation: alert and awake Resp Effort & Inspection: normal respiratory effort Discharge Plan Discharge Plan Patient Disposition: Home Provider Discharge Comment: Pt without complaints. Pain controlled with tylenol / motrin only. Nursing successfully. Vitals 104/77, 87, O2 sat 100%, 98.3, 16 H/H - 26/9 Discharge orders & Medications Prescriptions: New acetaminophen 325 mg Tablet 650 mg PO Q6H PRN (Reason: Fever/Mild Pain (1-3)) Qty: 60 0RF docusate sodium 100 mg Capsule 200 mg PO DAILY Qty: 30 0RF ibuprofen 600 mg Tablet 600 mg PO Q6H PRN (Reason: Fever/Mild Pain (1-3)) Qty: 60 0RF oxycodone 5 mg Tablet 5 mg PO Q4H PRN (Reason: Pain, Moderate (4-6)) Qty: 30 0RF Continued prenat.vits,makenna,[id number] Tablet 1 tab PO DAILY Follow up/Referrals: Nettie Florentino MD [Primary Care Provider] - 10/24/22 9:30 am (incision check appointment) Diet/Activity/Treatments Diet: Diet as Tolerated and Regular Activity: Nothing in vagina for 6 weeks. No lifting >10# for 6 weeks. Skin/Wound/Dressing Care Report to your healthcare provider any signs of infection, such as:: chills, fever, increased pain and unusual drainage Dressing: to be removed at next office visit Visit Report/Discharge Packet Stand Alone Forms: Discharge: Care Discharge Data Primary Care Provider: Nettie Florentino
== END 2022-10-19 11:10 | disposition home or self-care (01) | DRG 788 ==
PROVIDERS: Family Medicine; Admitting Provider Family Medicine; PCP Family Medicine; Referring Provider Family Medicine; Visit Provider Family Medicine
PROC: 10D00Z1 Extraction of Products of Conception, Low, Open Approach (ICD-10-PCS; CPT 59514; principal; 2022-10-17 11:15)
DX: O48.0 Post-term pregnancy (principal); O76 Abnormality in fetal heart rate and rhythm complicating labor and delivery; O99.824 Streptococcus B carrier state complicating childbirth; Z3A.41 41 weeks gestation of pregnancy; Z37.0 Single live birth; Z67.40 Type O blood, Rh positive; O99.344 Other mental disorders complicating childbirth; F43.10 Post-traumatic stress disorder, unspecified; F44.81 Dissociative identity disorder; Z20.822 Contact with and (suspected) exposure to COVID-19
CPT/HCPCS: 36415; 59025; 59050; 59510; 59514; 85025; 86850; 86900; 86901; 87635; C9803; G0378; G0379; J0690; J1885; J2250; J2274; J2405; J2540; J2590; J3010

== ENCOUNTER → 2023-01-14 11:47 | Outpatient (CLI) | payer OTHER, SELFPAY ==
[2023-01-14 16:20] LABS: Urine N gonorrhoeae NOT DETECTED
[2023-01-14 16:34] LABS: Urine Chlamydia NOT DETECTED
== END ==
PROVIDERS: PCP Family Medicine; Visit Provider Family Medicine
DX: Z30.430 Encounter for insertion of intrauterine contraceptive device (principal)
CPT/HCPCS: 87491; 87591

== ENCOUNTER → 2023-02-26 15:17 | Outpatient (CLI) | payer OTHER, SELFPAY ==
[2023-02-26 15:34] LABS: Add Manual Diff / Slide Review NO; Basophils Absolute Auto 0 /uL (0-100); Basophils Percent Auto 0.6 % (0-2); Eosinophils Absolute Auto 200 /uL (0-450); Eosinophils Percent Auto 2.5 % (2-4); Hemoglobin 12.8 g/dL (12.0-16.0); Lymphocytes Absolute Auto 3900 /uL (1100-4500); Lymphocytes Percent Auto 51.1 % (25-40); Mean Corpuscular HGB Conc 33.5 % (30-36); Mean Corpuscular Hemoglobin 27.9 PG (26-34); Mean Corpuscular Volume 83.1 fL (80-100); Monocytes Absolute Auto 500 /uL (0-900); Monocytes Percent Auto 6.1 % (3-14); Neutrophils Absolute Auto 3100 /uL (1500-7000); Neutrophils Percent Auto 39.7 % (50-75); Platelet Count 317 X10^3/uL (150-400); Red Blood Cell Count 4.57 X10^6/uL (4.0-5.2); Red Cell Distribution Width 13.3 % (11.6-14.8); White Blood Cell Count 7.7 X10^3/uL (4.5-11.0)
[2023-02-26 16:04] LABS: Alanine Aminotransferase 18 IU/L (<35); Albumin 4.8 g/dL (3.5-5.0); Albumin Globulin Ratio 1.5 (1.0-2.8); Alkaline Phosphatase 80 U/L (38-126); Aspartate Aminotransferase 25 IU/L (14-36); BUN Creatinine Ratio 14.5 (6-22); Bilirubin Total 0.3 mg/dL (0.2-1.3); Blood Urea Nitrogen 10 mg/dL (7-17); Calcium 9.4 mg/dL (8.4-10.2); Carbon Dioxide 25 mmol/L (22-32); Chloride 103 mmol/L (98-107); Estimated Glomerular Filt Rate > 60 mL/min (>60); Globulin 3.2 g/dL (1.7-4.1); Glucose 86 mg/dL (70-100); HEMOLYSIS < 15 (0-50); Potassium 4.3 mmol/L (3.4-5.1); Sodium 139 mmol/L (137-145)
[2023-02-26 16:34] LABS: TSH w/ Reflex to FT4 1.28 uIU/mL (0.47-4.68)
[2023-02-26 16:53] LABS: Vitamin B12 748 pg/mL (239-931)
== END ==
PROVIDERS: PCP Family Medicine; Referring Provider Family Medicine; Visit Provider Family Medicine
DX: R20.2 Paresthesia of skin (principal)
CPT/HCPCS: 36415; 80053; 82607; 84443; 85025

== ENCOUNTER → 2023-07-08 11:10 | Outpatient (CLI) | payer OTHER, SELFPAY ==
[2023-07-09 06:10] LABS: RPR Screen Non Reactive (Non Reactive)
[2023-07-09 12:28] LABS: HIV 1 & 2 Ab/Ag 4th Gen Combo NEGATIVE (NEGATIVE)
== END ==
PROVIDERS: PCP Family Medicine; Referring Provider Physician Assistant; Visit Provider Physician Assistant
DX: Z20.2 Contact with and (suspected) exposure to infections with a predominantly sexual mode of transmission (principal)
CPT/HCPCS: 36415; 86592; 87389

== ENCOUNTER → 2023-08-11 12:14 | Outpatient (CLI) | payer OTHER, SELFPAY ==
--- NOTE | 2023-08-11 12:28 | DI.RAD.S_ITS ---
PROCEDURE: XR CERVICAL SPINE 2V OR 3V INDICATIONS: wrist pain, numbness TECHNIQUE: 3 view(s) of the cervical spine were acquired. COMPARISON: None. FINDINGS: Bones: No fractures or dislocations to the C7 level. The lateral masses of C1 appear intact on the odontoid view. No suspicious bony lesions. Soft tissues: No prevertebral soft tissue swelling. IMPRESSION: No significant degenerative change. Dictated by: Dustin Greene M.D. on 08/11/2023 at 15:04 Approved by: Dustin Greene M.D. on 08/11/2023 at 15:05
== END ==
PROVIDERS: PCP Family Medicine; Referring Provider Family Medicine; Visit Provider Family Medicine
DX: M25.539 Pain in unspecified wrist (principal); R20.0 Anesthesia of skin; R20.2 Paresthesia of skin
CPT/HCPCS: 72040